=== PATIENT | female | born 2000 | race Caucasian/White ===

== ENCOUNTER 2022-01-18 22:40 | Emergency (ER) | payer OTHER ==
[~2022-01-18] VITALS: Ht 157.5 cm; Wt 90.9 kg
[2022-01-18] MEDS ORDERED: SODIUM CHLORIDE 0.9% 1,000 ML IV ONE (23:30)
[2022-01-18] MEDS ORDERED: KETOROLAC TROMETHAMINE 30 MG/ML VIAL IVP ONE (23:30)
[2022-01-18] MEDS ORDERED: METOCLOPRAMIDE HCL 5 MG/ML 2 ML VIAL IVP ONE (23:30)
[2022-01-18] MEDS ORDERED: DiphenhydrAMINE HCL 50 MG/ML VIAL IVP ONE (23:30)
[2022-01-19] MEDS ORDERED: CYCL-448 PO (00:41)
[2022-01-19] MEDS ORDERED: IBUP-2070 PO (00:41)
[2022-01-19 00:52] VITALS: BP 118/76
== END 2022-01-19 00:55 | disposition home or self-care (01) ==
LOC: EMS 22:41
DX: R51.9 Headache, unspecified (principal); F17.210 Nicotine dependence, cigarettes, uncomplicated; R42 Dizziness and giddiness
CPT/HCPCS: 99284; 96374; 70450; 96375; 96361; J1200; J1885; J2765; J7030